=== PATIENT | female | born 1950 | race Caucasian/White ===

== ENCOUNTER → 2020-12-28 10:48 | Outpatient (CLI) | payer MEDICARE, SELFPAY ==
--- NOTE | ~2020-12-28 | MR_ITS ---
EXAMINATION: MR lumbar spine wo con EXAM DATE: 12/28/2020 11:33 INDICATION: Low back pain symptoms for 5 months. TECHNIQUE: Multi-sequential, multiplanar MR images of the lumbar spine were obtained without contrast . Sagittal T1, T2, T2 fat saturation images. Axial T2 weighted images. There is no prior study for comparison. FINDINGS: There is moderate to severe disc disease L4-5, moderate disc disease from T10 through L4 an d mild to moderate at L5-S1. The vertebral bodies are aligned in the AP dimension. The conus medullar is terminates at the T12-L1 level and has normal signal intensity and morphology. There are no suspi cious marrow signal abnormalities. Paraspinal soft tissue is unremarkable. Level by level evaluation: T12-L1: There is a mild diffuse disc bulge. Facet arthropathy: Mild. Neural foraminal stenosis: No stenosis. Central canal stenosis: No stenosis. L1-L2: There is a moderate diffuse disc bulge. Facet arthropathy: Mild to moderate. Neural foraminal stenosis: Mild bilateral. Central canal stenosis: Mild. L2-L3: There is a moderate diffuse disc bulge. Facet arthropathy: Mild to moderate. Neural foraminal stenosis: Mild to moderate left, mild right. Central canal stenosis: Mild. L3-L4: There is a moderate diffuse disc bulge. Facet arthropathy: Moderate . Ligamentum flavum enlargement. Neural foraminal stenosis: Moderate left, mild to moderate right. Central canal stenosis: Mild to moderate. L4-L5: There is a moderate diffuse disc bulge. Facet arthropathy: Moderate . Ligamentum flavum enlargement. Neural foraminal stenosis: Moderate right, mild to moderate left. Central canal stenosis: Moderate. L5-S1: There is a mild to moderate diffuse disc bulge. Facet arthropathy: Severe. Neural foraminal stenosis: Moderate left, mild to moderate right. Central canal stenosis: Moderate. IMPRESSION: 1. Overall moderate lumbar spondylosis. Reviewed, dictated and finalized at location A.
== END ==
PROVIDERS: Visit Provider Nurse Practitioner Family
DX: M47.817 Spondylosis without myelopathy or radiculopathy, lumbosacral region (principal); M48.07 Spinal stenosis, lumbosacral region; M47.815 Spondylosis without myelopathy or radiculopathy, thoracolumbar region
CPT/HCPCS: 72148

== ENCOUNTER 2021-04-05 11:51 | Emergency (ER) | payer MEDICARE, SELFPAY ==
--- NOTE | ~2021-04-05 | XR_ITS ---
EXAMINATION: XR finger 2nd LT min 2V EXAM DATE: 04/05/2021 12:26 INDICATION: Lt 2nd PIP pain. Cant bend 1.5x days. No known recent injury. TECHNIQUE: Left 2nd finger frontal, lateral and oblique projections obtained and reviewed. There i s no prior study for comparison. FINDINGS: There is nearly complete loss of the left 2nd proximal interphalangeal joint space with bon y productive change. There is swelling over the proximal interphalangeal joint and phalanx. Less oste oarthritis at the distal interphalangeal joint. There are no acute fractures identified. No radiopaqu e foreign bodies identified. IMPRESSION: 1. 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 Reviewed, dictated and finalized at location A.
[2021-04-05 12:02] VITALS: BP 127/67; PULSE 89; RESP 20; TEMP 36.3; O2SAT 97
--- NOTE | 2021-04-05 12:18 | ED.UPPEXIN ---
HPI - Extremity Injury (Upper) General Chief Complaint: Extremity Injury, Upper Stated Complaint: Left index finger pain Time Seen by Provider: 04/05/21 12:18 Source: patient Mode of arrival: ambulatory Limitations: no limitations History of Present Illness HPI narrative: Lotus Davila is a 70 yo female with a PMH of A. fib, HTN, depression who comes to [facility] because her left index finger is swollen at the PNP for the last 2 days. Denies trauma Related Data Home Medications Medication Instructions Recorded Confirmed diltiazem HCl PO 04/05/21 diltiazem HCl [DILT-XR] PO 04/05/21 exemestane mg 04/05/21 furosemide 04/05/21 lisinopril 04/05/21 paroxetine HCl mg PO 04/05/21 potassium chloride meq PO 04/05/21 Allergies Allergy/AdvReac Type Severity Reaction Status Date / Time No Known Allergies Allergy Unverified 08/14/18 18:42 Review of Systems Review of Systems: CONSTITUTIONAL: Denies fever, chills, sweats. EYES: Denies visual changes, redness, discharge. ENT: Denies rhinorrhea, congestion, sore throat, otalgia. CARDIOVASCULAR: Denies chest pain, palpitations, edema. RESPIRATORY: Denies dyspnea, wheezing, cough GASTROINTESTINAL: Denies abdominal pain, nausea, vomiting, diarrhea. GENITOURINARY: Denies dysuria, hematuria, abnormal discharge SKIN: Denies rash or itching. NEUROLOGIC: Denies numbness, or focal weakness. PSYCHIATRIC: Denies anxiety or depression. Left index finger pain and swelling at the [employer] [facility] Past Medical History Medical History (Updated 04/05/21 @ 13:17 by Dalia Abdullahi CNP) A-fib Breast cancer Depression Hypertension Surgical History Surgical History (Updated 04/05/21 @ 12:43 by Dalia Abdullahi CNP) H/O lumpectomy Family History Family History (Updated 04/05/21 @ 12:43 by Dalia Abdullahi CNP) Other Heart disease Social History Social History (Updated 04/05/21 @ 12:44 by Dalia Abdullahi CNP) Smoking status: Never smoker Alcohol intake: current Comments At time of signature, I agree with nursing past medical, surgical, social and family history. There is no relevant family history pertinent to the presenting complaint. Exam Narrative: GENERAL: This is a well-nourished, well-developed patient, in mild distress. HEAD: normocephalic, atraumatic. EYES: Sclera clear/white. Vision is grossly intact. EARS: External ears normal, . Hearing grossly intact. NOSE: External nose normal without nasal discharge, THROAT: Mucous membranes moist, NECK: Neck supple, r CARDIOVASCULAR: Regular rate and rhythm without murmurs, gallops, or rubs. RESPIRATORY: Clear to auscultation. Breath sounds equal bilaterally. No wheezes, rales, or rhonchi. GASTROINTESTINAL: Abdomen soft, non-tender, SKIN: warm, intact with no suspicious lesions or rash, good texture and turgor. Occasional small bruises on arms NEURO: awake, alert, and oriented to person, place and time. There were no obvious focal neurologic abnormalities. Steady gait EXTREMITIES: Normal range of motion. Left first index finger is swollen at the [facility] and difficult to extend our flex she has good finger opposition except in the first finger, mildly warm, pink good, cap refill BACK: Nontender without deformity Course Course Emergency Course: Patient comes for evaluation of of her left index finger with swelling at the [facility] x2 days X-ray shows second digit osteoarthritis with swelling with a completely complete loss of this left second proximal interphalangeal joint with bony destructive change Placed in finger splint and sent to hand surgeon Vital Signs Vital signs: Vital Signs Temperature 97.4 F L 04/05/21 12:02 Pulse Rate 89 04/05/21 12:02 Respiratory Rate 20 04/05/21 12:02 Blood Pressure 127/67 04/05/21 12:02 Pulse Oximetry 97 04/05/21 12:02 Temperature 97.4 F L 04/05/21 12:02 Pulse Rate 89 04/05/21 12:02 Respiratory Rate 20 04/05/21 12:02 Blood Pressure 127/67
== END 2021-04-05 13:30 | disposition home or self-care (01) ==
PROVIDERS: Emergency Provider Nurse Practitioner; PCP Internal Medicine
DX: M19.042 Primary osteoarthritis, left hand (principal); M25.442 Effusion, left hand; I48.91 Unspecified atrial fibrillation; I10 Essential (primary) hypertension; Z85.3 Personal history of malignant neoplasm of breast; F32.9 Major depressive disorder, single episode, unspecified
CPT/HCPCS: 29130; 73140; 99213; G0463

== ENCOUNTER 2021-10-18 17:50 | Emergency (ER) | payer MEDICARE, SELFPAY ==
[2021-10-18 18:09] VITALS: BP 150/77; PULSE 82; RESP 14; TEMP 36.1; O2SAT 98
--- NOTE | 2021-10-18 19:19 | ED.LOWEXIN ---
HPI - Extremity Injury (Lower) General Chief Complaint: Extremity Injury, Lower Stated Complaint: Right leg pain Time Seen by Provider: 10/18/21 18:27 Source: patient Mode of arrival: ambulatory Limitations: no limitations History of Present Illness HPI Narrative: 70-year-old female with history of sciatica presents today with left buttock pain that radiates down the back of the left leg. Patient states the pain has been going on since the beginning of September. Patient denies seeing a doctor for this. Patient has been using ibuprofen 400 mg intermittently for pain without relief. Patient has been trying to do stretches for sciatica pain without relief. Patient denies any numbness or tingling, urinary incontinence, fecal incontinence, or saddle paresthesia. Related Data Home Medications Medication Instructions Recorded Confirmed diltiazem HCl PO 04/05/21 diltiazem HCl [DILT-XR] PO 04/05/21 exemestane mg 04/05/21 furosemide 04/05/21 lisinopril 04/05/21 paroxetine HCl mg PO 04/05/21 potassium chloride meq PO 04/05/21 Allergies Allergy/AdvReac Type Severity Reaction Status Date / Time No Known Allergies Allergy Verified 10/18/21 18:37 Review of Systems Review of Systems: CONSTITUTIONAL: Denies fever, chills, or sweats. EYES: Denies visual changes, redness, or discharge. ENT: Denies rhinorrhea, congestion, sore throat, or otalgia. CARDIOVASCULAR: Denies chest pain, palpitations, or edema. RESPIRATORY: Denies cough or dyspnea. GASTROINTESTINAL: Denies abdominal pain, nausea, vomiting, or diarrhea. GENITOURINARY: Denies dysuria or hematuria. SKIN: Denies rash or itching. MUSCULOSKELETAL: Left buttock pain radiating down the back of the left leg stopping at the knee. Denies back pain, joint pain, or myalgia. NEUROLOGIC: Denies headache, numbness, dizziness, or weakness. PSYCHIATRIC: Denies anxiety or depression. [facility] Past Medical History Medical History A-fib Breast cancer Depression Hypertension Surgical History Surgical History H/O lumpectomy Family History Family History Other Heart disease Social History Social History Smoking status: Never smoker Alcohol intake: current Exam Narrative: GENERAL: Well-appearing, well-nourished, and in no acute distress. HEAD: Normocephalic, atraumatic. EYES: PERRLA and EOMI. ENT: Nares clear, no rhinorrhea or epistaxis. Mucous membranes moist. Oropharynx without tonsillar hypertrophy exudate or other lesions. Bilateral TMs pearly hill nonbulging NECK: Supple. No adenopathy or masses. No carotid bruits or JVD CHEST: Clear to auscultation. No respiratory distress. No wheezes rales or rhonchi HEART: Regular rate and rhythm. No murmur heard. Normal peripheral pulses. ABDOMEN: Soft, nontender, nondistended, normal active bowel sounds. EXTREMITIES: Normal range of motion. No edema. Negative straight leg raises bilaterally. Point tenderness to left sacral area. SKIN: Warm, dry, no rash. NEURO: No focal deficits. Alert and oriented x3. PSYCH: Normal mood and affect. Course Vital Signs Vital signs: Vital Signs Temperature 36.1 C L 10/18/21 18:09 Pulse Rate 82 10/18/21 18:09 Respiratory Rate 14 10/18/21 18:09 Blood Pressure 150/77 H 10/18/21 18:09 Pulse Oximetry 98 10/18/21 18:09 Temperature 36.1 C L 10/18/21 18:09 Pulse Rate 77 10/18/21 20:06 Respiratory Rate 18 10/18/21 20:06 Blood Pressure 144/73 H 10/18/21 20:06 Pulse Oximetry 97 10/18/21 20:06 MDM - Extremity Injury (Lower) MDM Narrative Medical decision making narrative: Patient's pain is positional in nature and localized to back without signs of cord compression or cauda equina based on neurological exam, skeletal exam and history. No
[2021-10-18] MEDS: KETOROLAC 30 MG/ML VIAL (*BKC) IM (19:50)
[2021-10-18] MEDS: LIDOCAINE 5% PATCH 1 PATCH TRANSDERM (19:50)
[2021-10-18] MEDS: HYDROcodone/acetaminophen (*CRX) 5-325 MG TABLET 1 TAB PO (19:51)
[2021-10-18] MEDS: PHARMACIST COMMUNICATION ORDER 1 EACH XX (19:52)
[2021-10-18 20:06] VITALS: BP 144/73; PULSE 77; RESP 18; O2SAT 97
== END 2021-10-18 20:07 | disposition home or self-care (01) ==
LOC: ANHED 19:25
PROVIDERS: Emergency Provider Nurse Practitioner Family; PCP Internal Medicine
DX: M54.32 Sciatica, left side (principal); I48.91 Unspecified atrial fibrillation; I10 Essential (primary) hypertension; F32.A Depression, unspecified; Z85.3 Personal history of malignant neoplasm of breast
CPT/HCPCS: 96372; 99283; A9270; J1100; J1885

== ENCOUNTER 2022-01-24 09:37 | Inpatient (IN) | payer MEDICARE, SELFPAY ==
[2022-01-24] VITALS (13 sets, daily range): BP systolic 128–143; BP diastolic 60–70; PULSE 63–95; RESP 16–22; TEMP 36.1–36.7; O2SAT 95–97; BMI 35.1
--- NOTE | 2022-01-24 | ECHO_ITS ---
Patient Info Name: Lotus Davila Age: 71 years : 1950 Gender: Female Ht: 67 in Wt: 224 lbs BSA: 2.23 m2 HR: 67 bpm BP: 143 / 68 mmHg Technical Quality: Fair Exam Date: 01/24/2022 4:16 PM Exam Location: [facility] Pulmonary Exam Room: [facility] Patient Status: Outpatient Admit Date: 01/24/2022 Staff Ordering Physician: Lianet Stearns PA-C Network Applications Specialist: Ailyn Armijo RDCS Attending Provider: Lianet Stearns PA-C Referring Physician: Jinny JACKMAN; Exam Type: CA echo doppler w bubble study Study Info Indications - CVA Complete two-dimensional, color flow and Doppler transthoracic echocardiogram is performed with agitated saline. Contrast/Agitated Saline Contrast/Ag. Saline: Agitated Saline Amount: 20.00 ml Existing IV Access: Yes IV Access Condition: patent with no signs of infiltration Summary 1. Left ventricular chamber dimension is normal. 2. Left ventricular systolic function is normal, estimated at 65-70%. 3. The left ventricular diastolic function is grade II diastolic dysfunction. 4. There is mild aortic valve sclerosis. 5. No pulmonary hypertension, estimated pulmonary arterial systolic pressure is 22 mmHg. Left Ventricle Tissue doppler is not performed. Left ventricular chamber dimension is normal. Left ventricular systolic function is normal, estimated at 65-70%. The left ventricular diastolic function is grade II diastolic dysfunction. Right Ventricle Right ventricular chamber dimension is normal. Right ventricular systolic function is normal. Left Atria Left atrial chamber dimension is normal. Right Atria Right atrial chamber dimension is normal. Atrial Septum Agitated saline injection with and without valsalva maneuver opacified right side cardiac chambers without shunt to left side cardiac chambers. Intact interatrial septum visualized by 2D and agitated saline imaging. Aortic Valve The aortic valve is trileaflet. There is mild aortic valve sclerosis. There is no aortic valve stenosis. There is no aortic valve regurgitation. Pulmonic Valve There is no pulmonic regurgitation. Mitral Valve There is no mitral valve stenosis. There is no mitral valve regurgitation. Tricuspid Valve There is no tricuspid valve regurgitation. No pulmonary hypertension, estimated pulmonary arterial systolic pressure is 22 mmHg. Pericardium/Pleural There is no pericardial effusion. Inferior Vena Cava Normal inferior vena cava with >50% collapse upon inspiration consistent with normal right atrial pressure, 5 mmHg. Aorta The aortic root size at the sinus of Valsalva is normal. Left Ventricular Outflow Tract Name Value Normal LVOT 2D LVOT Diameter 2.0 cm LVOT Doppler LVOT Peak Gradient 5 mmHg LVOT Mean Gradient 2 mmHg LVOT VTI 21 cm LVOT VTI/AV VTI Ratio 1.0 LVOT Stroke Volume 65 ml LVOT CO 13.3 l/min LVOT
--- NOTE | ~2022-01-24 | XR_ITS ---
EXAMINATION: XR chest 1V portable DATE: 01/24/2022 10:35 INDICATION: Generalized weakness TECHNIQUE: frontal view of the chest was obtained. COMPARISON: None FINDINGS: Lungs are clear with no focal airspace opacities, pulmonary edema, pleural effusion or pneumothorax. Heart size is normal. Calcified right hilar lymph nodes consistent with old granulomatous disease. As ymmetric decreased size of the left breast with surgical clip suggesting prior excisional biopsy. IMPRESSION: 1. No acute cardiopulmonary disease. Reviewed, dictated and finalized at location A.
--- NOTE | ~2022-01-24 | MR_ITS ---
EXAMINATION: MR brain/brain stem wo con DATE: 01/25/2022 06:57 INDICATION: Stroke TECHNIQUE: Magnetic resonance imaging (MRI) of the brain and brainstem was performed without intraven ous contrast. Sequences included sagittal and axial T1-weighted SE, axial diffusion-weighted FS SE, a xial T2*-weighted GRE, axial T2-weighted FLAIR, and axial T2-weighted FSE. Postcontrast axial and cor onal T1-weighted SE was obtained. Apparent diffusion coefficient (ADC) maps were created. COMPARISON: CT studies dated 01/24/2022 FINDINGS: Moderate-sized region of restricted diffusion involving the medial aspect of the posterior left tempo ral and left occipital lobes consistent with acute infarct in the vascular distribution of the left p osterior cerebral artery. Single tiny focus of susceptibility artifact in the left frontal lobe white matter which could represent either old blood products or calcification not evident on prior CT. No other intracranial hemorrhage or abnormal intracranial mass lesion. There are scattered areas of nons pecific increased T2-weighted signal intensity in the cerebral white matter, predominantly involving the deep and periventricular white matter. There are no intraparenchymal signal abnormalities seen on the other pulse sequences. The ventricles are symmetric and normal in size. There are no abnormal ex tra-axial fluid collections. Flow voids are seen in the cerebral arteries on the T2-weighted sequence s consistent with their expected patency. Visualized orbits and soft tissues are unremarkable. IMPRESSION: 1. Moderate-sized acute infarct in the left posterior cerebral artery vascular distribution of the me dial left temporal and left occipital lobes. 2. Single tiny focus of susceptibility artifact in the left frontal lobe white matter which could rep resent either blood products related to old microhemorrhage such as in the setting of hypertension or nonspecific dystrophic calcification. 3. Patchy scattered nonspecific white matter T2 hyperintensity likely related to chronic small vessel ischemic disease. Reviewed, dictated and finalized at location A. IMPRESSION: 1. Moderate-sized acute infarct in the left posterior cerebral artery vascular distribution of the medial left temporal and left occipital lobes. 2. Single tiny focus of susceptibility artifact in the left frontal lobe white matter which could represent either blood products related to old microhemorrha ge such as in the setting of hypertension or nonspecific dystrophic calcificati on. 3. Patchy scattered nonspecific white matter T2 hyperintensity likely related t o chronic small vessel ischemic disease.
--- NOTE | ~2022-01-24 | CT_ITS ---
EXAMINATION: CT brain wo con DATE: 01/24/2022 10:28 INDICATION: Headache. Visual changes. TECHNIQUE: Computed tomography (CT) of the head was performed without intravenous contrast. Sagittal and coronal reconstructions were performed. Automated exposure control and iterative reconstruction t echnique were employed. The dose-length product was 605.33 mGy-cm. COMPARISON: None FINDINGS: Moderate-sized region of cytotoxic edema involving both the hill and white matter at the left tempora l and occipital lobes consistent with relatively recent infarct in the left posterior cerebral artery vascular distribution. No acute intracranial hemorrhage or abnormal extra axial fluid collection. Th ere is additional mild scattered white matter hypoattenuation consistent with chronic small vessel is chemic disease. Symmetric prominence of the sulci consistent with mild age-appropriate diffuse cerebr al volume loss. Ventricles are normal and symmetric. No abnormal masses identified. The orbits, paran shravan sinuses and mastoid air cells are normal. Intracranial calcified cerebral atherosclerosis is not ed. Mild hyperostosis frontalis. IMPRESSION: 1. Acute to subacute infarct in the left posterior cerebral artery vascular distribution of the left temporal and parietal lobes. Reviewed, dictated and finalized at location A. IMPRESSION: 1. Acute to subacute infarct in the left posterior cerebral artery vascular dis tribution of the left temporal and parietal lobes.
--- NOTE | ~2022-01-24 | CT_ITS ---
EXAMINATION: CTA BRAIN/CAROTID DATE: 01/24/2022 11:43 INDICATION: Stroke TECHNIQUE: Computed tomographic angiography (CTA) of the head and neck was performed with 100 mL Omni paque-350 intravenous contrast. Multiplanar reconstructions and maximum intensity projection 3D-recon structions of the carotid arteries and of the intracranial arteries were created by the technologist on a separate workstation. Automated exposure control and iterative reconstruction technique were emp loyed.The dose-length product was 1097.37 mGy-cm. COMPARISON: Head CT dated 01/24/2022 FINDINGS: Carotid arteries: There is some atherosclerotic calcification without significant stenosis along the normal caliber tho racic aortic arch as well as at the origins of the great vessels. Additional calcite atherosclerotic plaque but with 0% stenosis of the right carotid bulb relative to normal distal artery lumen diameter (NASCET criteria). There is 30% stenosis in the extracranial right internal carotid artery at the ce phalad margin of the carotid bulb. As on the right there is atherosclerotic plaque with 0% stenosis o f the left carotid bulb relative to normal distal artery lumen diameter but also 30% stenosis in the extracranial left internal carotid artery at the cephalad margin of the carotid bulb. The left verteb ral artery is dominant. There is atherosclerotic plaque scattered along the extracranial portion of t he bilateral vertebral arteries which appears likely at least moderate severity along the left verteb ral artery which is too small in caliber for quantitative assessment. Mild emphysema in the upper karen gs. Cervical soft tissues and visualized superior mediastinum is unremarkable. Severe cervical spondy losis. Intracranial arteries Multifocal atherosclerotic plaque at the bilateral carotid siphons with no hemodynamically significan t stenosis. There is no hemodynamically significant stenosis in the vertebral, basilar and internal c arotid arteries. Right vertebral artery is dominant. There are no aneurysms identified. Both A1 and P1 segments are patent. There is also a patent right posterior communicating artery. Cerebral arteria l arborization appears symmetric. This includes contrast opacified cerebral arteries extending throug h the low-attenuation region of the infarct in the left temporal and occipital lobes. There appears t o be some subtle luxury hyperperfusion along the margins of the region of infarct. IMPRESSION: 1. 0% stenosis at the left and right carotid bulbs relative to normal distal artery lumen diameter (N ASCET criteria) but with more distal 30% stenosis in both the left and right extracranial internal ca rotid arteries along the cephalad margin of the bilateral carotid bulbs. 2. No hemodynamically significant stenosis, aneurysm or thrombosis identified within the intracranial arteries with contrast opacified vessels extending through the region of low attenuation consistent with recent infarct involving portions of the left temporal and occipital lobes. Reviewed, dictated and finalized at location A. IMPRESSION: 1. 0% stenosis at the left and right carotid bulbs relative to normal distal ar sherrie lumen diameter (NASCET criteria) but with more distal 30% stenosis in both the left and right extracranial internal carotid arteries along the cephalad m argin of the bilateral carotid bulbs. 2. No hemodynamically significant stenosis, aneurysm or thrombosis identified w ithin the intracranial arteries with contrast opacified vessels extending throu gh the region of low attenuation consistent with recent infarct involving porti ons of the left temporal and occipital lobes.
--- NOTE | 2022-01-24 10:09 | ECG_ITS ---
Measurements Intervals [place] Rate: 67 P: 33 WV: 162 QRS: 52 QRSD: 89 T: 39 QT: 395 QTc: 419 Interpretive Statements SINUS RHYTHM WITH OCCASIONAL SUPRAVENTRICULAR PREMATURE COMPLEXES ABNORMAL ECG NO PREVIOUS ECG AVAILABLE FOR COMPARISON Electronically Signed On 01-24-2022 12:50:43 CDT by Rohit Rosenberg M.D.
--- NOTE | 2022-01-24 10:09 | ED.AMS ---
HPI - Altered Mental Status General Chief Complaint: Altered Mental Status Stated Complaint: ALTERED MENTATION SINCE FRIDAY Time Seen by Provider: 01/24/22 09:55 History of Present Illness HPI narrative: 71-year-old female presents to the emergency room today for complaints of generalized weakness, fatigue, visual disturbance and headache. She is also reporting a feeling of being off balance. Symptoms began on Friday. She says that she has blurred right peripheral vision almost to the center of her vision. It is affecting both of her eyes. I am standing on her right side and she is able to see me but it is blurry. She has a headache that is bilateral to the top of her head. Her reports that she has been sleeping a lot more than usual. And that she seems like she is off balance when she is up and walking. She has been able to eat and drink but has been less than her normal. She has not had any fever or chills. No runny nose cough or sore throat. She denies any facial numbness or weakness. Denies any extremity weakness or numbness. Denies chest pain. She does report feeling occasionally short of breath. No abdominal pain, nausea, vomiting or diarrhea. Denies any urinary symptoms. Related Data Home Medications Medication Instructions Recorded Confirmed diltiazem HCl 180 mg PO 04/05/21 capsule,extended release 24 hr diltiazem HCl 180 mg PO 04/05/21 capsule,extended release 24 hr, controlled (DILT-XR) exemestane 25 mg tablet mg 04/05/21 furosemide 40 mg tablet 04/05/21 lisinopril 20 mg tablet 04/05/21 paroxetine HCl 20 mg tablet mg PO 04/05/21 potassium chloride 20 mEq meq PO 04/05/21 tablet,extended release(part/cryst) Allergies Allergy/AdvReac Type Severity Reaction Status Date / Time No Known Allergies Allergy Verified 01/24/22 10:10 Review of Systems Review of Systems: CONSTITUTIONAL: Denies fever, chills, or sweats. EYES: as per HPI ENT: Denies rhinorrhea, congestion, sore throat, or otalgia. CARDIOVASCULAR: Denies chest pain, palpitations, or edema. RESPIRATORY: As per HPI GASTROINTESTINAL: Denies abdominal pain, nausea, vomiting, or diarrhea. GENITOURINARY: Denies dysuria or hematuria. SKIN: Denies rash or itching. MUSCULOSKELETAL: Denies back pain, joint pain, or myalgia. NEUROLOGIC: As per HPI PSYCHIATRIC: Denies anxiety or depression. PMFSH Past Medical History Medical History A-fib Breast cancer Depression Hypertension Surgical History Surgical History H/O lumpectomy Family History Family History Other Heart disease Social History Social History Smoking status: Never smoker Alcohol intake: current Exam Narrative: GENERAL: Well-appearing, well-nourished, and in no acute distress. HEAD: Normocephalic, atraumatic. EYES: PERRLA and EOMI. ENT: Nares clear, no rhinorrhea or epistaxis. Mucous membranes moist. Oropharynx without tonsillar hypertrophy exudate or other lesions. Bilateral TMs pearly hill nonbulging NECK: Supple. No adenopathy or masses. No carotid bruits or JVD CHEST: Clear to auscultation. No respiratory distress. No wheezes rales or rhonchi HEART: Regular rate and rhythm. No murmur heard. Normal peripheral pulses. ABDOMEN: Soft, nontender, nondistended, normal active bowel sounds. EXTREMITIES: Normal range of motion. No edema. SKIN: Warm, dry, no rash. NEURO: No focal deficits. Alert and oriented x3. Cranial nerves intact, face symetrical, no tongue deviation, normal speech, extremities 5/5, finger to nose normal, heel armando test normal, Rhomberg negative, no drift. NIH score 1, minus 1 for peripheral vision deficit PSYCH: Normal mood and affect. Course Course Emergency Course: 1055 Discussed carmel
--- NOTE | 2022-01-24 10:10 | PC.NURSE ---
EDP at bedside to assess pt.
--- NOTE | 2022-01-24 10:23 | PC.NURSE ---
Patient off unit to CT.
[2022-01-24 10:26] LABS: Basophils Percent Auto 0.5 % (0.2-1.2); Eosinophils Absolute Auto 0.2 K/mm3 (0-0.3); Eosinophils Percent Auto 1.7 % (0-4.4); Hematocrit 43.6 % (37.0-47.0); Hemoglobin 13.7 g/dL (12.0-15.0); Immature Granulocyte Absolute 0.02 K/mm3 (0.00-0.031); Immature Granulocyte Percent A 0.2 % (0-0.5); Lymphocytes Absolute Auto 1.82 K/mm3 (0.9-3.2); Lymphocytes Percent Auto 21.2 % (18.3-44.2); Mean Corpuscular HGB Conc 31.4 g/dl (32-36); Mean Corpuscular Hemoglobin 27.1 pg (26-34); Mean Corpuscular Volume 86.3 fl (80-100); Mean Platelet Volume 9.7 fl (7.4-10.4); Monocytes Absolute Auto 0.5 K/mm3 (0.1-0.6); Monocytes Percent Auto 5.6 % (2.6-8.5); Neutrophils Absolute Auto 6.1 K/mm3 (1.3-6.7); Neutrophils Percent Auto 70.8 % (45.5-73.1); Platelet Count Result 232 k/mm3 (150-375); Red Blood Count 5.05 M/mm3 (4.2-5.4); Red Cell Distribution Width 16.8 % (11.5-14.5); White Blood Count 8.6 K/mm3 (4.5-10.0)
[2022-01-24 10:38] LABS: Alanine Aminotransferase 16 U/L (6-35); Albumin Level 4.2 g/dL (3.5-5.1); Alkaline Phosphatase 110 U/L (38-126); Anion Gap 3 mmol/L (8-16); Aspartate Amino Transferase 22 U/L (14-36); Bilirubin,Total 0.6 mg/dL (0.2-1.3); Blood Urea Nitrogen 21 mg/dL (7-17); Calcium 9.4 mg/dL (8.4-10.2); Carbon Dioxide 30 mmol/L (22-30); Chloride 104 mmol/L (98-107); Estimated CRCL calculation 48 ml/min; Estimated Glomerular Filt Rate 44; Glucose 101 mg/dL (65-110); Potassium 4.4 mmol/L (3.4-5.0); Sodium 137 mmol/L (137-145)
[2022-01-24 10:39] LABS: INR 1.1; Prothrombin Time 13.6 Seconds (11.1-14.7)
[2022-01-24 10:40] LABS: Partial Thromboplastin Time 27.6 SECONDS (22.3-36.8)
[2022-01-24 10:50] LABS: Troponin I < 0.012 ng/mL (0.000-0.034)
[2022-01-24] MEDS: ONDANSETRON INJ 4 MG/2 ML VIAL IV PUSH (11:03)
[2022-01-24] MEDS: SODIUM CHLORIDE 0.9% IV 1,000 ML 999 ML IV CONT (11:05)
[2022-01-24 11:06] LABS: SARS-CoV-2 RNA PCR Negative
[2022-01-24] MEDS: ASPIRIN 81 MG CHEWABLE TABLET 324 MG PO (11:32)
[2022-01-24] MEDS: CLOPIDOGREL BISULFATE 300 MG TABLET PO (11:33)
--- NOTE | 2022-01-24 13:44 | PM.IMHP ---
H&P: HPI History of Present Illness Date/Time: 01/24/22 13:44 Chief Complaint: confusion Narrative: Pt is a 71 yo female w/ hx of paroxysmal afib s/p ablation, breast cancer s/p radiation and lumpectomy x 2, HTN, and depression, who presented to the ED for confusion. Pt states that 2 nights ago she woke up in the middle of the night feeling disoriented and confused. She went back to bed and slept most of the day yesterday. Pt states she didn't feel right. Symptoms continued today and when her son came to check on her, he felt she was disoriented because she asked what his back brace was even though he'd been wearing it for the past several weeks. He tried helping her put her shoes on but she was having coordination issues. She states she felt off balance with generalized weakness, but did not have any focal motor weakness or paraesthesias. She also notes that she had a frontal headache and loss of her right side peripheral vision, however at the time of my exam she states these symptoms have significantly improved. She overall feels much better. She is hungry and states she hardly ate anything the past 2 days because she has mainly been sleeping. No recent cough/cold symptoms, fevers, chills, bodyaches, N/V/D/abd pain, cp/sob. ER preliminary workup significant for CT head showing acute to subacture infarct in the left posterior cerebral artery vascular distribution. She was given loading dose of aspirin and plavix in ED and neurology was consulted. Pt is being admitted as observation status in this setting. Review of Systems Review of Systems: General: Denies fevers Eyes: + vision changes ENT: Denies nasal congestion or sore throat Respiratory: Denies cough or shortness of breath Cardiovascular: Denies chest pain or lower extremity edema Gastrointestinal: Denies abdominal pain, vomiting, or diarrhea Genitourinary: Denies dysuria Musculoskeletal: Denies back pain Neurological: + headache, denies motor weakness or paraesthesias Integumentary: Denies rash PMFSH Past Medical History Medical History (Updated 01/24/22 @ 14:28 by Lianet Stearns PA-C) A-fib Breast cancer Depression Hypertension Surgical History Surgical History (Updated 01/24/22 @ 14:28 by Lianet Stearns PA-C) H/O lumpectomy History of cardiac radiofrequency ablation History of cataract surgery History of cholecystectomy Social History Social History (Updated 01/24/22 @ 14:30 by Lianet Stearns PA-C) Smoking status: Current some day smoker Tobacco type: cigarettes Additional smoking assessment comments: used to smoke heavily, quit 10 years ago but still has 1-2 cigarettes/month Alcohol intake: current Substance use: never Living arrangements: with family Meds Home Medications and Allergies Home Medications Medication Instructions Recorded Confirmed Type diltiazem HCl 180 mg PO 04/05/21 History capsule,extended release 24 hr exemestane 25 mg tablet mg 04/05/21 History furosemide 40 mg tablet 04/05/21 History lisinopril 20 mg tablet 04/05/21 History paroxetine HCl 20 mg tablet mg PO 04/05/21 History potassium chloride 20 mEq meq PO 04/05/21 History tablet,extended release(part/cryst) Allergies Allergy/AdvReac Type Severity Reaction Status Date / Time No Known Allergies Allergy Verified 01/24/22 14:20 Vital Signs Vital Signs - 24 hr 01/24/22 09:59 01/24/22 10:12 01/24/22 10:15 Temperature 96.9 F L Pulse Rate 95 66 73 Respiratory Rate 16 20 16 Blood Pressure 128/70 Pulse Oximetry 95 Oxygen Delivery Room Air 01/24/22 10:30 01/24/22 10:45 01/24/22 11:00 Temperature Pulse Rate 69 74 69 Respiratory Rate 22 H 17 19 Blood Pressure Pulse Oximetry Oxygen Delivery 01/24/22 11:47 01/24/22 12:00 01/24/22 12:01 Temperature Pulse Rate 65 63 64 Respiratory Rate 17 16 16 Blood Pressure 143/68 H Pulse Oximetry Oxygen Delivery
[2022-01-24 16:23] LABS: Appearance Urine Clear (Clear); Bilirubin Urine Negative (Negative); Blood Urine Negative (Negative); Color Urine Yellow (Yellow); Glucose Urine UA Negative (Negative); Ketones Urine Negative (Negative); Leukocyte Esterase Ur Negative LEU/UL (Negative); Nitrate Urine Negative (Negative); Protein Urine Negative (Negative)
[2022-01-24 16:30] LABS: Add Urine Microscopic? NO
--- NOTE | 2022-01-24 18:39 | PHAR ---
HOME MEDICATION VERIFIED BY PHARMACY: EXEMESTANE 25 MG TABLETS TAKE 1 TABLET BY MOUTH DAILY
[2022-01-25] VITALS (8 sets, daily range): BP systolic 107–124; BP diastolic 60–64; PULSE 67–73; RESP 18; TEMP 36.1–37; O2SAT 94–96
[2022-01-25] MEDS: ACETAMINOPHEN 500 MG TABLET 1000 MG PO (00:33)
[2022-01-25 06:09] LABS: Basophils Percent Auto 0.5 % (0.2-1.2); Eosinophils Absolute Auto 0.2 K/mm3 (0-0.3); Hemoglobin 12.2 g/dL (12.0-15.0); Immature Granulocyte Absolute 0.01 K/mm3 (0.00-0.031); Immature Granulocyte Percent A 0.1 % (0-0.5); Lymphocytes Absolute Auto 2.02 K/mm3 (0.9-3.2); Lymphocytes Percent Auto 25.4 % (18.3-44.2); Mean Corpuscular HGB Conc 31.3 g/dl (32-36); Mean Corpuscular Hemoglobin 27.1 pg (26-34); Mean Corpuscular Volume 86.5 fl (80-100); Mean Platelet Volume 10.1 fl (7.4-10.4); Monocytes Absolute Auto 0.5 K/mm3 (0.1-0.6); Monocytes Percent Auto 5.8 % (2.6-8.5); Neutrophils Absolute Auto 5.3 K/mm3 (1.3-6.7); Neutrophils Percent Auto 66.2 % (45.5-73.1); Platelet Count Result 195 k/mm3 (150-375); Red Blood Count 4.51 M/mm3 (4.2-5.4); Red Cell Distribution Width 16.5 % (11.5-14.5)
[2022-01-25 06:19] LABS: Alanine Aminotransferase 14 U/L (6-35); Albumin Level 3.7 g/dL (3.5-5.1); Alkaline Phosphatase 96 U/L (38-126); Anion Gap 4 mmol/L (8-16); Aspartate Amino Transferase 20 U/L (14-36); Bilirubin,Total 0.4 mg/dL (0.2-1.3); Blood Urea Nitrogen 20 mg/dL (7-17); Carbon Dioxide 27 mmol/L (22-30); Chloride 104 mmol/L (98-107); Estimated CRCL calculation 48 ml/min; Estimated Glomerular Filt Rate 44; Glucose 97 mg/dL (65-110); Potassium 4.4 mmol/L (3.4-5.0); Sodium 135 mmol/L (137-145)
--- NOTE | 2022-01-25 06:38 | PC.NURSE ---
Pt off unit to MRI at 0635 via wheelchair
[2022-01-25] MEDS: CLOPIDOGREL BISULFATE 75 MG TABLET PO (08:12)
[2022-01-25] MEDS: dilTIAZem HCL CD 180 MG CAP.ER.24H PO (08:12)
[2022-01-25] MEDS: POTASSIUM CHLORIDE 20 MEQ TABLET.ER PO (08:13)
[2022-01-25] MEDS: FUROSEMIDE 40 MG TABLET PO (08:13)
[2022-01-25] MEDS: ASPIRIN 81 MG ENTERIC TABLET PO (08:13)
[2022-01-25] MEDS: lisinopriL 20 MG TABLET PO (08:13)
[2022-01-25] MEDS: PARoxetine 20 MG TABLET PO (08:13)
--- NOTE | 2022-01-25 08:13 | PM.IMPN ---
Progress Note: A&P Assessment and Plan (1) CVA (cerebral vascular accident): Code(s): I63.9 - Cerebral infarction, unspecified Status: Acute Assessment and Plan: -CT head shows acute to subacute infarct in the left posterior cerebral artery vascular distribution of the left temporal and parietal lobes -CTA head/neck shows 0% stenosis at the left and right carotid bulbs relative to normal distal artery lumen diameter (NASCET criteria) but with more distal 30% stenosis in both the left and right extracranial internal carotid arteries along the cephalad margin of the bilateral carotid bulbs. No hemodynamically significant stenosis, aneurysm or thrombosis identified within the intracranial arteries with contrast opacified vessels extending through the region of low attenuation consistent with recent infarct involving portions of the left temporal and occipital lobes. -MRI brain pending -started asa and plavix. Continue pravastatin. Received loading dose of asa and plavix in ED -echo pending -neuro consulted (2) A-fib: Code(s): I48.91 - Unspecified atrial fibrillation Status: Acute Assessment and Plan: -hx of paroxysmal afib s/p ablation 3-4 years ago, was taken off of blood thinners after that -states over the past year she has had intermittent palpitations similar to her symptoms prior to her ablation -EKG shows sinus rhythm with occasional supraventricular premature complexes -echo pending -pt will likely need to f/u w/ her youth corrections officer at [place], may need 30 day event monitor to see if she is in fact going back into a fib -monitor on telemetry (3) Hypertension: Code(s): I10 - Essential (primary) hypertension Status: Acute Assessment and Plan: -continue lisinopril -stable (4) Depression: Code(s): F32.9 - Major depressive disorder, single episode, unspecified Status: Acute Assessment and Plan: -continue paroxetine -no acute issues Subjective Date/time seen: 01/25/22 08:13 Interval history: Pt is a 71 yo female w/ hx of paroxysmal afib s/p ablation, breast cancer s/p radiation and lumpectomy x 2, HTN, and depression, admitted for acute CVA. Pt is feeling better today. Has a mild headache but states her vision in her R eye is almost back to normal. No other complaints. No focal weakness. No cp/sob/palpitations. Review of Systems Review of Systems: All systems reviewed & are unremarkable except as noted in HPI and below Exam Narrative: General: No acute distress, non toxic appearing, obese Eyes: PERRL, no scleral icterus, no nystagmus HEENT: NCAT, external ears normal, MMM Respiratory: No respiratory distress, Lungs CTA bilaterally, no wheezing Cardiovascular: RRR, no murmur Abdominal: Soft, nontender, non distended, no rebound or guarding Musculoskeletal: Moves all 4 extremities, no edema Neurological: A/Ox3, speech clear, no facial asymmetry, cranial nerves II-XII intact, 5/5 strength BUE and BLE Skin: Warm, dry, no rashes Objective Data Vital Signs Vital Signs: Vital Signs - 24 hr 01/24/22 09:59 01/24/22 10:12 01/24/22 10:15 Temperature 96.9 F L Pulse Rate 95 66 73 Respiratory Rate 16 20 16 Blood Pressure 128/70 Pulse Oximetry 95 Oxygen Delivery Room Air 01/24/22 10:30 01/24/22 10:45 01/24/22 11:00 Temperature Pulse Rate 69 74 69 Respiratory Rate 22 H 17 19 Blood Pressure Pulse Oximetry Oxygen Delivery 01/24/22 11:47 01/24/22 12:00 01/24/22 12:01 Temperature Pulse Rate 65 63 64 Respiratory Rate 17 16 16 Blood Pressure 143/68 H Pulse Oximetry Oxygen Delivery 01/24/22 15:40 01/24/22 16:00 01/24/22 20:00 Temperature 97.4 F L Pulse Rate 75 76 70 Respiratory Rate 16 Blood Pressure 133/60 Pulse Oximetry 97 Oxygen Delivery 01/24/22 20:00 01/24/22 22:00 01/25/22 00:00 Temperature 98.1 F Pulse Rate 70 70 Respiratory Rat
[2022-01-25] MEDS: PRAVASTATIN SODIUM 20 MG TABLET 80 MG PO (09:01)
[2022-01-25] MEDS: ONDANSETRON HCL ODT 4 MG TABLET PO (11:19)
[2022-01-25] MEDS: ACETAMINOPHEN 325 MG TABLET 650 MG PO ×2 (11:19→20:17)
--- NOTE | 2022-01-25 12:15 | WPDNEURCNPN ---
Consult date: 01/25/22 Time Seen: 12:00 Reason for consult: stroke HPI: Lotus Davila is a 71 year old female [facility] Past Medical History Medical History (Updated 01/24/22 @ 14:28 by Lianet Stearns PA-C) A-fib Breast cancer Depression Hypertension Surgical History Surgical History (Updated 01/24/22 @ 14:28 by Lianet Stearns PA-C) H/O lumpectomy History of cardiac radiofrequency ablation History of cataract surgery History of cholecystectomy Social History Social History (Updated 01/24/22 @ 14:30 by Lianet Stearns PA-C) Smoking status: Current some day smoker Tobacco type: cigarettes Additional smoking assessment comments: used to smoke heavily, quit 10 years ago but still has 1-2 cigarettes/month Alcohol intake: current Substance use: never Living arrangements: with family Spiritual care concerns: No Meds Home Medications and Allergies Home Medications Medication Instructions Recorded Confirmed Type diltiazem HCl 180 mg 180 mg PO DAILY 04/05/21 01/24/22 History capsule,extended release 24 hr exemestane 25 mg tablet (Aromasin) 25 mg PO DAILY 04/05/21 01/24/22 History furosemide 40 mg tablet (Lasix) 40 mg PO DAILY 04/05/21 01/24/22 History lisinopril 20 mg tablet 20 mg PO DAILY 04/05/21 01/24/22 History paroxetine HCl 20 mg tablet 20 mg PO DAILY 04/05/21 01/24/22 History potassium chloride 20 mEq 20 meq PO DAILY 04/05/21 01/24/22 History tablet,extended release(part/cryst) aspirin 81 mg BYMOUTH DAILY 01/24/22 01/24/22 History pravastatin 80 mg tablet 80 tablet PO DAILY 01/24/22 01/24/22 History Allergies Allergy/AdvReac Type Severity Reaction Status Date / Time No Known Allergies Allergy Verified 01/24/22 14:20 Vital Signs Vital Signs - 24 hr 01/24/22 15:40 01/24/22 16:00 01/24/22 20:00 Temperature 36.3 C L Pulse Rate 75 76 70 Respiratory Rate 16 Blood Pressure 133/60 Pulse Oximetry 97 Oxygen Delivery 01/24/22 20:00 01/24/22 22:00 01/25/22 00:00 Temperature 36.7 C Pulse Rate 70 70 Respiratory Rate 20 Blood Pressure 139/70 Pulse Oximetry 97 Oxygen Delivery Room Air 01/25/22 04:00 01/25/22 05:22 01/25/22 09:42 Temperature 36.1 C L Pulse Rate 71 67 Respiratory Rate 18 Blood Pressure 124/64 Pulse Oximetry 95 Oxygen Delivery Room Air 01/25/22 08:45 Temperature Pulse Rate Respiratory Rate Blood Pressure Pulse Oximetry Oxygen Delivery Room Air Results Labs CBC & Chem 7: 01/25/22 05:31 01/25/22 05:31 Labs: Short CBC 01/25/22 Range/Units 05:31 WBC 8.0 (4.5-10.0) K/mm3 Hgb 12.2 (12.0-15.0) g/dL Hct 39.0 (37.0-47.0) % Plt Count 195 (150-375) k/mm3 BMP 01/25/22 05:31 Sodium 135 L Potassium 4.4 Chloride 104 Carbon Dioxide 27 BUN 20 H Creatinine 1.20 H Glucose 97 Calcium 9.0 Liver Function 01/25/22 Range/Units 05:31 Total Bilirubin 0.4 (0.2-1.3) mg/dL AST 20 (14-36) U/L ALT 14 (6-35) U/L Alkaline Phosphatase 96 (38-126) U/L Albumin 3.7 (3.5-5.1) g/dL Urine 01/24/22 Range/Units 16:09 Urine Color Yellow (Yellow) Urine Appearance Clear (Clear) Urine pH 6.0 (5.0-9.0) Ur Specific [place] 1.010 (1.001-1.035) Urine Protein Negative (Negative) mg/dL Urine Glucose (UA) Negative (Negative) mg/dL Quality VTE Prophylaxis VTE prophylaxis: mechanical ordered and pharmacologic ordered
--- NOTE | 2022-01-25 12:54 | WPDNEURCNPN ---
Assessment and Plan Assessment and plan (1) CVA (cerebral vascular accident): Code(s): I63.9 - Cerebral infarction, unspecified Status: Acute (2) A-fib: Code(s): I48.91 - Unspecified atrial fibrillation Status: Acute (3) Hypertension: Code(s): I10 - Essential (primary) hypertension Status: Acute (4) Depression: Code(s): F32.9 - Major depressive disorder, single episode, unspecified Status: Acute Plan considering the pre-existent history of the atrial fibrillation patient will be restarted on the anticoagulation therapy instead of aspirin and Plavix. All the pros and cons will be discussed with the patient's family who happened to be in the room and she will be followed in the office as an outpatient Consult date: 01/25/22 Time Seen: 10:00 Reason for consult: change in the mental status HPI: Lotus Davila is a 71 year old female admitted to the hospital through the emergency room where she was brought with the complaints of altered mental status since Friday in the emergency room she complained of generalized weakness along with fatigue visual disturbances and headache and also complained of being off balance symptomatology started on Friday initially she had blurred vision on the right side up to the midline affecting her both eyes along with that she complain of headache the top of her head and also she was noted to be sleeping excessively she was able to eat and drink he has no history of any generalized symptomatology she did not complain of facial weakness or numbness or weakness or numbness of the upper or lower extremities. Patient had been taking diltiazem 180 mg daily in addition to fluorescent might 40 mg daily, lisinopril 20 mg daily, paroxetine 20 mg daily, and also potassium supplement, she is not known to be allergic to any medication , she does have ongoing history of 1. Atrial fibrillation 2. Breast cancer 3. Hypertension 4. Depression past she has also undergone lumpectomy. Initial examination documented the visual field cut initial EKG did not document atrial fibrillation, routine labs and vital signs were normal, the CT scan of the head revealed acute to subacute infarct in left posterior cerebral artery vascular distribution involving the left temporal and parietal lobes but the CTA documented 0% stenosis of the left and right carotid bulbs but with more distal 30% stenosis in both the left and right extracranial internal carotid arteries and MRI of the brain documented moderate size acute infarct in left posterior cerebral artery vascular distribution of the medial left temporal lobe and left occipital lobe along with single tiny focus of susceptibility artifact in left frontal lobe white matter and patchy scattered nonspecific white matter T2 hyperintensities related to chronic small vessel ischemic disease Review of Systems Review of Systems: All systems reviewed & are unremarkable except as noted in HPI and below [facility] Past Medical History Medical History (Updated 01/24/22 @ 14:28 by Lianet Stearns PA-C) A-fib Breast cancer Depression Hypertension Surgical History Surgical History (Updated 01/24/22 @ 14:28 by Lianet Stearns PA-C) H/O lumpectomy History of cardiac radiofrequency ablation History of cataract surgery History of cholecystectomy Social History Social History (Updated 01/24/22 @ 14:30 by Lianet Stearns PA-C) Smoking status: Current some day smoker Tobacco type: cigarettes Additional smoking assessment comments: used to smoke heavily, quit 10 years ago but still has 1-2 cigarettes/month Alcohol intake: current Substance use: never Living arrangements: with family Spiritual care concerns: No Meds Home Medications and Allergies Home Medications Medication Instructions Recorded Confirmed Type diltiazem HCl 180 mg 180 mg PO DAILY 04/05/21 01/24/22 History capsule,extended release 24 hr exemestane 2
--- NOTE | 2022-01-25 13:05 | WPDNEURCNPN ---
Consult date: 01/25/22 HPI: Lotus Davila is a 71 year old female [facility] Past Medical History Medical History (Updated 01/24/22 @ 14:28 by Lianet Stearns PA-C) A-fib Breast cancer Depression Hypertension Surgical History Surgical History (Updated 01/24/22 @ 14:28 by Lianet Stearns PA-C) H/O lumpectomy History of cardiac radiofrequency ablation History of cataract surgery History of cholecystectomy Social History Social History (Updated 01/24/22 @ 14:30 by Lianet Stearns PA-C) Smoking status: Current some day smoker Tobacco type: cigarettes Additional smoking assessment comments: used to smoke heavily, quit 10 years ago but still has 1-2 cigarettes/month Alcohol intake: current Substance use: never Living arrangements: with family Spiritual care concerns: No Meds Home Medications and Allergies Home Medications Medication Instructions Recorded Confirmed Type diltiazem HCl 180 mg 180 mg PO DAILY 04/05/21 01/24/22 History capsule,extended release 24 hr exemestane 25 mg tablet (Aromasin) 25 mg PO DAILY 04/05/21 01/24/22 History furosemide 40 mg tablet (Lasix) 40 mg PO DAILY 04/05/21 01/24/22 History lisinopril 20 mg tablet 20 mg PO DAILY 04/05/21 01/24/22 History paroxetine HCl 20 mg tablet 20 mg PO DAILY 04/05/21 01/24/22 History potassium chloride 20 mEq 20 meq PO DAILY 04/05/21 01/24/22 History tablet,extended release(part/cryst) aspirin 81 mg BYMOUTH DAILY 01/24/22 01/24/22 History pravastatin 80 mg tablet 80 tablet PO DAILY 01/24/22 01/24/22 History Allergies Allergy/AdvReac Type Severity Reaction Status Date / Time No Known Allergies Allergy Verified 01/24/22 14:20 Vital Signs Vital Signs - 24 hr 01/24/22 15:40 01/24/22 16:00 01/24/22 20:00 Temperature 36.3 C L Pulse Rate 75 76 70 Respiratory Rate 16 Blood Pressure 133/60 Pulse Oximetry 97 Oxygen Delivery 01/24/22 20:00 01/24/22 22:00 01/25/22 00:00 Temperature 36.7 C Pulse Rate 70 70 Respiratory Rate 20 Blood Pressure 139/70 Pulse Oximetry 97 Oxygen Delivery Room Air 01/25/22 04:00 01/25/22 05:22 01/25/22 09:42 Temperature 36.1 C L Pulse Rate 71 67 Respiratory Rate 18 Blood Pressure 124/64 Pulse Oximetry 95 Oxygen Delivery Room Air 01/25/22 08:45 01/25/22 12:00 Temperature Pulse Rate 72 Respiratory Rate Blood Pressure Pulse Oximetry Oxygen Delivery Room Air Results Labs CBC & Chem 7: 01/25/22 05:31 01/25/22 05:31 Labs: Short CBC 01/25/22 Range/Units 05:31 WBC 8.0 (4.5-10.0) K/mm3 Hgb 12.2 (12.0-15.0) g/dL Hct 39.0 (37.0-47.0) % Plt Count 195 (150-375) k/mm3 BMP 01/25/22 05:31 Sodium 135 L Potassium 4.4 Chloride 104 Carbon Dioxide 27 BUN 20 H Creatinine 1.20 H Glucose 97 Calcium 9.0 Liver Function 01/25/22 Range/Units 05:31 Total Bilirubin 0.4 (0.2-1.3) mg/dL AST 20 (14-36) U/L ALT 14 (6-35) U/L Alkaline Phosphatase 96 (38-126) U/L Albumin 3.7 (3.5-5.1) g/dL Urine 01/24/22 Range/Units 16:09 Urine Color Yellow (Yellow) Urine Appearance Clear (Clear) Urine pH 6.0 (5.0-9.0) Ur Specific [place] 1.010 (1.001-1.035) Urine Protein Negative (Negative) mg/dL Urine Glucose (UA) Negative (Negative) mg/dL Quality VTE Prophylaxis VTE prophylaxis: mechanical ordered and pharmacologic ordered
--- NOTE | 2022-01-25 13:46 | PCOTNOTE ---
Amended evaluation. Pt. visual deficits have improved. D/C from services.
[2022-01-25] MEDS: RIVAROXABAN 15 MG TABLET PO (17:07)
[2022-01-26 04:00] VITALS: PULSE 55
[2022-01-26 05:52] VITALS: BP 120/64; PULSE 60; RESP 16; TEMP 36.3; O2SAT 94
[2022-01-26 08:00] VITALS: PULSE 62
[2022-01-26] MEDS: PRAVASTATIN SODIUM 20 MG TABLET 80 MG PO (08:06)
[2022-01-26] MEDS: lisinopriL 20 MG TABLET PO (08:06)
[2022-01-26] MEDS: PARoxetine 20 MG TABLET PO (08:06)
[2022-01-26] MEDS: POTASSIUM CHLORIDE 20 MEQ TABLET.ER PO (08:06)
[2022-01-26] MEDS: dilTIAZem HCL CD 180 MG CAP.ER.24H PO (08:06)
[2022-01-26] MEDS: FUROSEMIDE 40 MG TABLET PO (08:07)
[2022-01-26 08:31] LABS: Anion Gap 5 mmol/L (8-16); Blood Urea Nitrogen 18 mg/dL (7-17); Calcium 9.2 mg/dL (8.4-10.2); Carbon Dioxide 30 mmol/L (22-30); Chloride 103 mmol/L (98-107); Estimated CRCL calculation 48 ml/min; Estimated Glomerular Filt Rate 44; Glucose 103 mg/dL (65-110); Potassium 4.4 mmol/L (3.4-5.0); Sodium 138 mmol/L (137-145)
--- NOTE | 2022-01-26 11:37 | PM.DS ---
DS: Admitting Diagnosis Discharge Date 01/26/22 Admitting Diagnosis Confusion DS: Discharge Diagnosis Discharge Diagnosis (1) CVA (cerebral vascular accident): Code(s): I63.9 - Cerebral infarction, unspecified Status: Acute (2) A-fib: Code(s): I48.91 - Unspecified atrial fibrillation Status: Acute (3) Hypertension: Code(s): I10 - Essential (primary) hypertension Status: Acute (4) Depression: Code(s): F32.9 - Major depressive disorder, single episode, unspecified Status: Acute (5) Breast cancer: Code(s): C50.919 - Malignant neoplasm of unspecified site of unspecified female breast Status: Acute DS: Summary Hospital Course Reason for hospitalization: 71yo female who presents with confusion. Please see H&P for details Hospital Course: Patient presents with generalized weakness, fatigue, visual disturbance and headache. She was having confusion as well. EKG showed sinus rhythm with occasional PAC. Echocardiogram showed EF of 65-70% with grade 2 diastolic dysfunction and no significant valvular disease. The intra-atrial septum was intact. Brain CT showed acute to subacute infarct of the left posterior cerebral artery distribution involving the temporal and parietal lobes. Chest x-ray was clear. CTA of the head and neck showed 0% stenosis of the left and right carotid bulbs but with more distal 30% stenosis of the bilateral extracranial ICA. No hemodynamically significant stenosis, aneurysm or thrombus identified. Brain MRI showed moderate size acute infarct in left posterior cerebral artery distribution of the medial left temporal and left occipital lobes. There is also a single tiny foci a in the left frontal lobe which could represent old microhemorrhage. Neurology was consulted. She is on Aromasin and this was held. Creatinine was mildly elevated at 1.2 and remained stable and was suspected that she has underlying CKD. No recent lab work here to compare. Urinalysis was clear. COVID test was negative. Patient worked with therapy. She was on telemetry but this did not show any episodes of AFib. There was a concern however for paroxysmal AFib that resulted in her stroke. Neurology started her on Xarelto. Aspirin was stopped. Patient feels well. She overall did well was a to be discharged home on 01/26/2022. Status at Discharge Cognitive/behavioral status at discharge: Stable Time Spent with Patient Time attestation: Total time spent providing and/or coordinating discharge services: 35 minutes Time spent: Greater than 30 minutes Exam Narrative: AF 97.3 120/64 62 16 94% ra Gen - NARD Chest - CTA bilaterally, nml RR CV - RRR S1/S2; Tele showing PVCs Abd - Soft, NT/ND, Positive BS Ext - No pedal edema Neuro - Alert and oriented. Nonfocal exam. Mildly forgetful Psych - Nml mood and affect Skin - Warm and dry DS: Data Data Completed and Pending Labs on day of discharge: Labs from last 24 hours 01/26/22 08:04 Sodium 138 Potassium 4.4 Chloride 103 Carbon Dioxide 30 Anion Gap 5 L BUN 18 H Creatinine 1.20 H Estim Creat Clear Calc 48 Estimated GFR 44 L Glucose 103 Calcium 9.2 Discharge Plan Discharge Attending physician on discharge: Boston Mendez Consulting providers: Nima Aguirre Discharging Clinician: Boston Mendez Anticipated Discharge Date/Time: 01/26/22 11:51 Patient Disposition: Home, Self-Care Activity: as tolerated Diet: heart healthy Discharge Instructions: Please avoid large gathering, wear face coverings in public and practice social distance. Take precautions to avoid falls. Rise slowly from a lying or sitting position. Pause before standing or walking. Contact your doctor or call 911 and come to the Emergency Room if you have any type of trauma, lightheadedness with standing or other worrisome symptoms. Avoid NSAIDs (ibuprofen, naproxen, Aleve). Enedina
== END 2022-01-26 12:40 | disposition home or self-care (01) | DRG 66 ==
LOC: ANHED 10:10 → ANH3MEDSUR 12:12
PROVIDERS: Physician Assistant; Admitting Provider Family Medicine; Emergency Provider Nurse Practitioner Family; PCP Internal Medicine; Visit Provider Internal Medicine
DX: I63.9 Cerebral infarction, unspecified (principal); H53.8 Other visual disturbances; R53.1 Weakness; R53.83 Other fatigue; I48.91 Unspecified atrial fibrillation; C50.919 Malignant neoplasm of unspecified site of unspecified female breast; I12.9 Hypertensive chronic kidney disease with stage 1 through stage 4 chronic kidney disease, or unspecified chronic kidney disease; N18.9 Chronic kidney disease, unspecified; F32.9 Major depressive disorder, single episode, unspecified; F17.210 Nicotine dependence, cigarettes, uncomplicated; Z20.822 Contact with and (suspected) exposure to COVID-19; Z79.811 Long term (current) use of aromatase inhibitors; Z79.82 Long term (current) use of aspirin; Z79.899 Other long term (current) drug therapy; Z92.3 Personal history of irradiation
CPT/HCPCS: 36415; 70450; 70496; 70498; 70551; 71045; 80048; 80053; 81003; 84484; 85025; 85610; 85730; 93005; 93306; 96361; 96374; 96375; 97161; 97165; 99285; A9270; C9803; G0378; J2405; J7030; Q9967; U0003; U0005

== ENCOUNTER 2023-01-10 01:49 | Day surgery (SDC) | payer MEDICARE, SELFPAY ==
[2023-01-03 13:04] VITALS: BMI 37.6
--- NOTE | 2023-01-09 17:50 | PM.HPGS ---
History of Present Illness History of Present Illness Consent: Risks, benefits, and alternatives have been discussed and questions answered. Patient agrees to proceed with procedure. Chief complaint: anemia Narrative: Lotus Davila is a 72 year old female He is referred for EGD and colonoscopy because of anemia. She has microcytic anemia with hemoglobin of 10.5. MCV is 77. she was feeling extremely tired and fatigued for a week or 2. She since starting iron she is feeling better. Her last colonoscopy was 10 years ago. She takes Naprosyn also Xarelto. Review of Systems Review of Systems: All systems reviewed & are unremarkable except as noted in HPI and below PMFSH Past Medical History Medical History A-fib Breast cancer Depression Hypertension Surgical History Surgical History H/O lumpectomy History of cardiac radiofrequency ablation History of cataract surgery History of cholecystectomy Social History Social History Smoking packs per day: 0.75 Smoking cigarettes per day: 15.0 Years smoked: 45 Smoking pack-years: 33.75 Smoking status: Former smoker Tobacco type: cigarettes Additional smoking assessment comments: used to smoke heavily, quit 10 years ago but still has 1-2 cigarettes/month Alcohol intake: current Substance use: never Substance use type: does not use Living arrangements: with family Spiritual care concerns: No Meds Home Medications and Allergies Home Medications Medication Instructions Recorded Confirmed Type diltiazem HCl 180 mg 180 mg PO DAILY 04/05/21 01/03/23 History capsule,extended release 24 hr exemestane 25 mg tablet (Aromasin) 25 mg PO DAILY 04/05/21 01/03/23 History furosemide 40 mg tablet (Lasix) 40 mg PO DAILY 04/05/21 01/03/23 History lisinopril 20 mg tablet 20 mg PO DAILY 04/05/21 01/03/23 History paroxetine HCl 20 mg tablet 20 mg PO DAILY 04/05/21 01/03/23 History potassium chloride 20 mEq 20 meq PO DAILY 04/05/21 01/03/23 History tablet,extended release(part/cryst) pravastatin 80 mg tablet 80 tablet PO DAILY 01/24/22 01/03/23 History rivaroxaban 15 mg tablet (Xarelto) 15 mg PO DAILY@1700 30 days #30 01/25/22 01/03/23 Rx tabs Stool Softener 1 tab-cap PO HS 01/03/23 01/03/23 History calcium carbonate 600 mg-vitamin 1 tablet PO DAILY 01/03/23 01/03/23 History D3 10 mcg (400 unit) tablet (Calcium 600 + D(3)) ezetimibe 10 mg tablet 10 mg PO DAILY 01/03/23 01/03/23 History ferrous sulfate 324 mg (65 mg 324 mg PO DAILY 01/03/23 01/03/23 History iron) tablet,delayed release magnesium oxide 400 mg (241.3 mg 400 mg PO DAILY 01/03/23 01/03/23 History magnesium) tablet psyllium husk 0.4 gram capsule 0.4 g PO DAILY 01/03/23 01/03/23 History (Metamucil) Allergies Allergy/AdvReac Type Severity Reaction Status Date / Time No Known Allergies Allergy Verified 01/03/23 12:53 Exam Const: General: alert Orientation/consciousness: patient oriented x3 Resp: Auscultation: clear to auscultation bilaterally Cardio: Rhythm: regular rhythm GI: GI Palp: Yes Soft to palpation and No Tenderness to palpation present (GI) Neuro: General: patient oriented x3 Assessment and Plan Assessment and plan (1) Iron deficiency anemia: Code(s): D50.9 - Iron deficiency anemia, unspecified Status: Acute Assessment and Plan: EGD with possible biopsy or dilatation or cautery.Colonoscopy with possible biopsy or polypectomy or cautery or injection of substances.
[2023-01-10 09:12] VITALS: BP 126/71; PULSE 71; RESP 16; TEMP 36.6; O2SAT 100; BMI 36.1
[2023-01-10] MEDS: LACTATED RINGERS 1,000 ML 150 ML IV CONT (09:24)
--- NOTE | 2023-01-10 09:41 | WPDANESEPPF ---
Anes - Initial Pre Proc Eval Procedure: Operation Date: 01/10/23 10:00 Proposed Procedures p Esophagogastroduodenoscopy & Colonoscopy - Teto Ponce MD Date/Time: 01/10/23 09:41 Surgeon: Teto Ponce MD Pre Op Diagnosis: anemia Patient Data Age: 72 Gender: F Height: 1.7 m Weight: 104.7 kg Last Vital Signs Temp 97.8 F 01/10/23 09:12 Pulse 71 01/10/23 09:12 Resp 16 01/10/23 09:12 BP 126/71 01/10/23 09:12 Pulse Ox 100 01/10/23 09:12 O2 Del Method Room Air 01/10/23 09:12 Allergies Allergy/AdvReac Type Severity Reaction Status Date / Time No Known Allergies Allergy Verified 01/03/23 12:53 Home Medications Medication Instructions Recorded Confirmed Type diltiazem HCl 180 mg 180 mg PO DAILY 04/05/21 01/03/23 History capsule,extended release 24 hr exemestane 25 mg tablet (Aromasin) 25 mg PO DAILY 04/05/21 01/03/23 History furosemide 40 mg tablet (Lasix) 40 mg PO DAILY 04/05/21 01/03/23 History lisinopril 20 mg tablet 20 mg PO DAILY 04/05/21 01/03/23 History paroxetine HCl 20 mg tablet 20 mg PO DAILY 04/05/21 01/03/23 History potassium chloride 20 mEq 20 meq PO DAILY 04/05/21 01/03/23 History tablet,extended release(part/cryst) pravastatin 80 mg tablet 80 tablet PO DAILY 01/24/22 01/03/23 History rivaroxaban 15 mg tablet (Xarelto) 15 mg PO DAILY@1700 30 days #30 01/25/22 01/03/23 Rx tabs Stool Softener 1 tab-cap PO HS 01/03/23 01/03/23 History calcium carbonate 600 mg-vitamin 1 tablet PO DAILY 01/03/23 01/03/23 History D3 10 mcg (400 unit) tablet (Calcium 600 + D(3)) ezetimibe 10 mg tablet 10 mg PO DAILY 01/03/23 01/03/23 History ferrous sulfate 324 mg (65 mg 324 mg PO DAILY 01/03/23 01/03/23 History iron) tablet,delayed release magnesium oxide 400 mg (241.3 mg 400 mg PO DAILY 01/03/23 01/03/23 History magnesium) tablet psyllium husk 0.4 gram capsule 0.4 g PO DAILY 01/03/23 01/03/23 History (Metamucil) Patient hx anesthesia problems: none Family hx anesthesia problems: none Results Review: All pre-operative results and documents have been reviewed as part of the pre-operative evaluation. PMFSH Past Medical History Medical History A-fib Breast cancer Depression Hypertension Surgical History Surgical History H/O lumpectomy History of cardiac radiofrequency ablation History of cataract surgery History of cholecystectomy Social History Social History Smoking packs per day: 0.75 Smoking cigarettes per day: 15.0 Years smoked: 45 Smoking pack-years: 33.75 Smoking status: Former smoker Tobacco type: cigarettes Additional smoking assessment comments: used to smoke heavily, quit 10 years ago but still has 1-2 cigarettes/month Alcohol intake: current Substance use: never Substance use type: does not use Living arrangements: with family Spiritual care concerns: No Anes - Eval Final PreProcedure Day of Procedure 01/10/23 09:41 Patient weight: obese Heart: regular rate and rhythm Lungs: clear to auscultation Airway: Mallampati scale class II Neurological: alert and oriented Last oral intake: >/= 8 hours ASA classification: III Emergent: no Anesthetic plan: proceed Anesthesia type and monitoring: general GIVS and standard monitoring Results Review: All pre-operative results and documents have been reviewed as part of the pre-operative evaluation. Informed Consent: The patient's anesthetic plan and its attendant risks and benefits were discussed with the patient/family/POA. Questions were solicited and answers provided to the satisfaction of the patient/family/POA.
[2023-01-10] MEDS: BENZOCAINE (*SP) 60 ML SPRAY CAN (HURRICAINE) 1 SPRAY MUCOUS MEM (10:02)
--- NOTE | 2023-01-10 10:13 | SUR.OPER ---
EGD END 1006 COLONOSCOPY START 1014
[2023-01-10 10:44] VITALS: BP 126/53; PULSE 82; RESP 16; O2SAT 95
[2023-01-10 10:54] VITALS: BP 97/70; PULSE 75; RESP 16; O2SAT 98
[2023-01-10 11:04] VITALS: BP 101/76; PULSE 84; RESP 16; O2SAT 99
== END 2023-01-10 11:30 | disposition home or self-care (01) ==
PROVIDERS: PCP Internal Medicine; Visit Provider Internal Medicine Gastroenterology
PROC: 0DJ08ZZ Inspection of Upper Intestinal Tract, Via Natural or Artificial Opening Endoscopic (ICD-10-PCS; CPT 43235; principal; 2023-01-10 10:00)
DX: D50.9 Iron deficiency anemia, unspecified (principal); D12.2 Benign neoplasm of ascending colon; K57.30 Diverticulosis of large intestine without perforation or abscess without bleeding; D17.5 Benign lipomatous neoplasm of intra-abdominal organs; K64.8 Other hemorrhoids; K21.9 Gastro-esophageal reflux disease without esophagitis; I48.91 Unspecified atrial fibrillation; I10 Essential (primary) hypertension; F32.A Depression, unspecified; Z85.3 Personal history of malignant neoplasm of breast; Z79.01 Long term (current) use of anticoagulants; Z72.0 Tobacco use; E66.9 Obesity, unspecified; Z68.36 Body mass index [BMI] 36.0-36.9, adult
CPT/HCPCS: 45385; 43235; 88305; J2704; J7120

== ENCOUNTER → 2023-05-27 11:22 | Outpatient (CLI) | payer MEDICARE, SELFPAY ==
--- NOTE | ~2023-05-27 | MR_ITS ---
EXAMINATION: MR hand RT wo con DATE: 05/27/2023 12:43 INDICATION: Osteomyelitis with 2 weeks of erythema and swelling at the right second digit TECHNIQUE: Magnetic resonance imaging (MRI) of the right hand was performed without intravenous contr ast to include the metacarpals and digits but excluding the carpus. Sequences included sagittal, sayda nal, and axial T1-weighted FSE and T2-weighted FS FSE. COMPARISON: None FINDINGS: Bone alignment is normal. No fractures. Geographic increased T2 signal and loss of T1 hyperintense ma rrow fat signal at the distal left second middle phalanx with suggestion of some osteolysis at the ul wolfgang side of the head of the middle phalanx which is consistent with provided history of osteomyelitis . Prominent synovitis versus complex effusion at the distal interphalangeal joint which bulges the do rsal capsule of the joint. There is additional increased T2 signal at the distal phalanx with mildly decreased but still present T1 marrow fat signal which could represent either reactive edema or early osteomyelitis. Bone marrow signal is otherwise normal throughout the remainder of the visualized rig ht hand. There is polyarticular osteoarthritis, moderate severity at the fourth and fifth distal inte rphalangeal joints and mild at many of the remaining metacarpophalangeal and interphalangeal joints. The distal extensor tendons of the second digit along are indistinct at the level of the distal inter phalangeal joint along with the collateral ligaments at this joint resulting from the prominent infla mmatory changes with increased T2 and decreased T1 signal of the surrounding soft tissues and subcuta neous fat. Remainder of the visualized flexor and extensor tendons and collateral ligament complexes appear normal. Aside from at the second distal interphalangeal joint there is noted joint effusion or abscess. IMPRESSION: 1. Constellation of findings consistent with septic arthritis at the second distal interphalangeal sridevi int with osteomyelitis at the distal aspect of the middle phalanx and reactive edema versus additiona l early osteomyelitis at the base of the distal phalanx. Reviewed, dictated and finalized at location A. IMPRESSION: 1. Constellation of findings consistent with septic arthritis at the second dis dex interphalangeal joint with osteomyelitis at the distal aspect of the middle phalanx and reactive edema versus additional early osteomyelitis at the base o f the distal phalanx.
== END ==
PROVIDERS: PCP Internal Medicine; Visit Provider Internal Medicine
DX: M86.9 Osteomyelitis, unspecified (principal)
CPT/HCPCS: 73218

== ENCOUNTER 2023-06-04 14:51 | Outpatient (CLI) | payer MEDICARE, SELFPAY ==
--- NOTE | ~2023-06-04 | XR_ITS ---
EXAM: XR finger 2nd RT min 2V, XR hand RT min 3V DATE: 06/04/2023 15:16 HISTORY: right index DIP joint, pain swelling . COMPARISON: None available. FINDINGS: Decreased mineralization. No fracture or dislocation. No lytic or blastic lesion. Arthriti c changes typical of osteoarthritis present in the hand and wrist, most pronounced in the DIP joints of the fingers, with severe erosive changes in the second DIP joint. No erosion or periosteal change. Soft tissue swelling over the second digit. 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 Infection is not excluded. Reviewed, dictated and finalized at location K. IMPRESSION: Severe erosive change in the right DIP joint, likely representing s evere erosive osteoarthritis. Infection is not excluded.
== END 2023-06-04 14:52 | disposition home or self-care (01) ==
PROVIDERS: PCP Internal Medicine; Visit Provider Plastic Surgery
DX: M19.041 Primary osteoarthritis, right hand (principal)
CPT/HCPCS: 73130; 73140

== ENCOUNTER → 2023-07-31 13:19 | Outpatient (CLI) | payer MEDICARE, SELFPAY ==
--- NOTE | ~2023-07-31 | XR_ITS ---
EXAM: XR finger 2nd RT min 2V DATE: 07/31/2023 14:15 HISTORY: Other acute osteomyelitis, right hand . COMPARISON: None available. FINDINGS: Decreased mineralization. No fracture or dislocation. Redemonstration of the severe erosiv e change in the right second DIP joint. Mild scattered degenerative changes in other visualized joint s. No new erosion or periosteal change. IMPRESSION: Stable severe erosive change in the right second DIP joint. Reviewed, dictated and finalized at location K. [employer]
== END ==
PROVIDERS: PCP Plastic Surgery; Visit Provider Plastic Surgery
DX: M86.141 Other acute osteomyelitis, right hand (principal)
CPT/HCPCS: 73140

== ENCOUNTER 2024-06-05 15:31 | Emergency (ER) | payer MEDICARE, SELFPAY ==
--- NOTE | ~2024-06-05 | CT_ITS ---
EXAMINATION: CT diagnostic chest w con DATE: 06/05/2024 17:07 INDICATION: Left breast infection TECHNIQUE: Computed tomography (CT) of the chest was performed with 100 CC Omnipaque 350 intravenous contrast. Automated exposure control and iterative reconstruction technique were employed. Exam dose: 542.23 mGy-cm total exam DLP. COMPARISON: None FINDINGS: 2 5.1 cm vertical, 5.4 cm transverse 2.9 cm deep air-containing cavity of the central mid a nd lower left breast, extending into the skin surface, abutting the pectoralis major muscle posterior ly. There is generalized increased density of the left breast parenchyma and skin thickening of the l eft breast. Normal heart size. Coronary artery calcifications. Thoracic aortic calcification, great vessel calcifications. No thoracic aortic aneurysm or dissection . No pericardial or pleural effusion. Calcified right hilar and subcarinal nodes consistent with old granulomatous disease. No hilar or mediastinal mass lesion or lymphadenopathy. The lungs are clear of infiltrate or consolidation. Normal morphology of the adrenal glands. Status post cholecystectomy. Hepatic and splenic calcified granulomas consistent with old granulomatous disease. Degenerative disc disease of the lower cervical spine. Degenerative spurring of the thoracic spine No suspicious osteolytic or osteoblastic lesions are noted. IMPRESSION: Left breast abscess cavity, surrounding increased density of the left breast and left br east skin thickening The lungs are clear Old granulomatous disease Status post cholecystectomy Reviewed, dictated and finalized at [facility] Reviewed, dictated and finalized at [facility] IMPRESSION: Left breast abscess cavity, surrounding increased density of the l eft breast and left breast skin thickening The lungs are clear Old granulomatous disease Status post cholecystectomy
[2024-06-05 15:34] VITALS: BP 164/67; PULSE 87; RESP 18; TEMP 36.6; O2SAT 98
--- NOTE | 2024-06-05 15:48 | ED_ITS ---
HPI - Wound/Laceration General Chief Complaint: Wound/Laceration Stated Complaint: wound Time Seen by Provider: 06/05/24 15:34 Source: patient Mode of arrival: ambulatory Limitations: no limitations History of Present Illness HPI narrative: This is a 73-year-old female with PMH of breast cancer, CVA, AFib, HTN who presents to the ED for chief complaint of painful wound to the left breast. Reports that she had an incision and drainage done in the OR at [facility] [address] Martins. they have been tending to the wound at home this week and changing gauze/packing. They report the packing is very deep and extensive. It has been draining yellow fluid that appears to be infected. She is here today because the wound is more painful and she is feeling generally unwell. Patient and saw some discharge and were unsure of the nature of this discharge which is why they are here as well. endorses nausea but no vomiting. denies fevers, chills, Diarrhea, LOC, spreading redness throughout the chest, back pain, abdominal pain reports surgical history of 2 lumpectomies to the left breast for breast cancer several years ago. Related Data Home Medications Medication Instructions Recorded Confirmed diltiazem HCl 180 mg 180 mg PO DAILY 04/05/21 01/03/23 capsule,extended release 24 hr exemestane 25 mg tablet (Aromasin) 25 mg PO DAILY 04/05/21 01/03/23 furosemide 40 mg tablet (Lasix) 40 mg PO DAILY 04/05/21 01/03/23 lisinopril 20 mg tablet 20 mg PO DAILY 04/05/21 01/03/23 paroxetine HCl 20 mg tablet 20 mg PO DAILY 04/05/21 01/03/23 potassium chloride 20 mEq 20 meq PO DAILY 04/05/21 01/03/23 tablet,extended release(part/cryst) pravastatin 80 mg tablet 80 tablet PO DAILY 01/24/22 01/03/23 calcium 600 mg (as 1 tablet PO DAILY 01/03/23 01/03/23 carbonate)-vitamin D3 10 mcg (400 unit) tablet (Calcium 600 + D(3)) magnesium oxide 400 mg (241.3 mg 400 mg PO DAILY 01/03/23 01/03/23 magnesium) tablet psyllium husk 0.4 gram capsule 0.4 g PO DAILY 01/03/23 01/03/23 (Metamucil) ezetimibe 10 mg tablet 10 mg PO DAILY 06/04/23 Allergies Allergy/AdvReac Type Severity Reaction Status Date / Time No Known Allergies Allergy Verified 06/05/24 15:47 Review of Systems Review of Systems: All systems as dictated in [facility] Past Medical History Medical History A-fib Breast cancer Depression Hypertension Surgical History Surgical History H/O lumpectomy History of cardiac radiofrequency ablation History of cataract surgery History of cholecystectomy Social History Social History (Updated 06/04/23 @ 15:41 by Kayy Nolan CMA) Smoking packs per day: 0.75 Smoking cigarettes per day: 15.0 Years smoked: 45 Smoking pack-years: 33.75 Smoking status: Former smoker Tobacco type: cigarettes Additional smoking assessment comments: used to smoke heavily, quit 10 years ago but still has 1-2 cigarettes/month Alcohol intake: current Substance use: never Substance use type: does not use Lack of Transportation: No Lack of Food: Never True Current Housing: I Have Housing Concerned About Future Housing: No Difficulty Paying Gas/Electric Bills: No Difficulty Paying for Meds: No Currently Unemployed: No Education: Associate Degree Difficulty w/ Childcare or Family Care: No Living arrangements: with family Spiritual care concerns: No Exam Narrative: GENERAL: Well-appearing, well-nourished, and in no acute distress. HEAD: Normocephalic, atraumatic. EYES: PERRLA and EOMI. ENT: Nares clear, no rhinorrhea or epistaxis. Mucous membranes moist. Oropharynx without tonsillar hypertrophy exudate or other lesions. NECK: Supple. No adenopathy or masses. CHEST: No respiratory distress. Clear to auscultation. No wheezes rales or rhonchi. left breast: there is a open 3.5 cm wound to the inferior left breast. Mild surrounding erythema and induration. tenderness to the area. Minimal purulent drainage noted although there appears to be some purulence/fatty tissue in the wound bed which is well over 5 cm deep. Right breast: Benign HEART: Regular rate and rhythm. No murmur heard. Normal peripheral pulses. ABDOMEN: Soft, nontender, nondistended, normal active bowel sounds. MSK: Normal range of motion. No edema. SKIN: Warm, dry, no rash. NEURO: Alert and oriented x4. No focal deficits. PSYCH: Normal mood and affect. Course Vital Signs Vital signs: Vital Signs Temperature 97.8 F 06/05/24 15:34 Pulse Rate 87 06/05/24 15:34 Respiratory Rate 18 06/05/24 15:34 Blood Pressure 164/67 H 06/05/24 15:34 Pulse Oximetry 98 06/05/24 15:34 Oxygen Delivery Room Air 06/05/24 15:34 Temperature 97.8 F 06/05/24 15:34 Pulse Rate 67 06/05/24 19:27 Respiratory Rate 17 06/05/24 19:27 Blood Pressure 134/60 06/05/24 19:27 Pulse Oximetry 97 06/05/24 19:27 Oxygen Delivery Room Air 06/05/24 15:34 MDM - Wound/Laceration MDM Narrative Medical decision making narrative: This is a 73 yo female who presents to the ED for chief complaint of open left breast wound and feeling unwell. Recent incision and drainage done in the OR at another facility for breast abscess. Vitals are normal. Exam is remarkable for the above. There is a deep wound bed to the inferior left breast that has been previously surgically addressed for breast cancer with multiple lumpectomies. There is some surrounding erythema and induration to the open surgical wound. Lab work shows mildly elevated white count of 13.5. CRP is elevated at 13 3. BUN and creatinine are slightly up, patient does appear to be dehydrated. Urinalysis unremarkable. Chest CT: IMPRESSION: Left breast abscess cavity, surrounding increased density of the left breast and left breast skin thickening The lungs are clear Old granulomatous disease Status post cholecystectomy. Presentation consistent with a cellulitis. No evidence of deep space infection. No sepsis. Patient was given fluids, pain meds and antiemetics with good relief. She was started on Ancef here and will be given prescription for cephalexin. Encouraged to follow up with surgeon on this issue. Patient will be discharged in stable condition. Supportive measures discussed and return precautions given. Patient is understanding and agreeable with plan for discharge with PCP/surgery follow-up. Lab Data 06/05/24 16:17 06/05/24 16:17 Labs: Lab Results 06/05/24 06/05/24 Range/Units 16:17 16:50 WBC 13.5 H (4.5-10.0) K/mm3 RBC 4.22 (4.2-5.4) M/mm3 Hgb 12.1 (12.0-15.0) g/dL Hct 37.0 (37.0-47.0) % MCV 87.7 (80-100) fl MCH 28.7 (26-34) pg MCHC 32.7 (32-36) g/dl RDW 15.6 H (11.5-14.5) % Plt Count 311 D (150-375) k/mm3 MPV 10.3 (7.4-10.4) fl Immature Gran % (Auto) 0.3 (0-0.5) % Neut % (Auto) 79.5 H (45.5-73.1) % Lymph % (Auto) 13.6 L (18.3-44.2) % Hinds % (Auto) 5.6 (2.6-8.5) % Eos % (Auto) 0.8 (0-4.4) % Baso % (Auto) 0.2 (0.2-1.2) % Lymph # (Auto) 1.84 (0.9-3.2) K/mm3 Hinds # (Auto) 0.8 H (0.1-0.6) K/mm3 Eos # (Auto) 0.1 (0-0.3) K/mm3 Baso # (Auto) 0.0 (0.0-0.1) K/mm3 Abs Immat Gran (auto) 0.04 H (0.00-0.031) K/mm3 Absolute Neuts (auto) 10.7 H (1.3-6.7) K/mm3 Absolute Nucleated RBC 0.000 (0.0-0.012) K/mm3 Nucleated RBC % 0.0 (0.0-0.2) % Sodium 138 (137-145) mmol/L Potassium 4.4 (3.4-5.0) mmol/L Chloride 98 (98-107) mmol/L Carbon Dioxide 29 (22-30) mmol/L Anion Gap 11 (4-12) mmol/L BUN 29 H D (7-17) mg/dL Creatinine 1.20 H (0.7-1.0) mg/dL Estim Creat Clear Calc 47 ml/min Estimated GFR 44 L (59 - ) Glucose 152 H (65-110) mg/dL Lactic Acid 1.2 (0.7-2.0) mmol/L Calcium 9.5 (8.4-10.2) mg/dL Total Bilirubin 0.6 (0.2-1.3) mg/dL AST 30 (14-36) U/L ALT 26 (6-35) U/L Alkaline Phosphatase 94 (38-126) U/L C-Reactive Protein 13.3 H (<1.0) mg/dL Total Protein 8.0 (6.3-8.2) g/dL Albumin 4.2 (3.5-5.1) g/dL Urine Color Dark yellow (Yellow) Urine Appearance Cloudy H (Clear) Urine pH 6.5 (5.0-9.0) Ur Specific Neely 1.023 (1.001-1.035) Urine Protein 1+ H (Negative) mg/dL Urine Glucose (UA) Negative (Negative) mg/dL Urine Ketones Trace H (Negative) mg/dL Ur Blood (Man) Negative (Negative) Urine Nitrate Negative (Negative) Urine Bilirubin Negative (Negative) Urine Urobilinogen 1.0 (<2.0) mg/dL Add Ur Microanalysis Reviewed Leukocyte Esterase Rfl 1+ H (Negative) COMPA/UL Urine RBC 0-2 (0-2) /hpf Urine WBC 0-5 (0-3) /hpf Ur Squamous Epith Cells Few (Few) /hpf Urine Bacteria None seen /hpf Urine Casts 0-2 Discharge Plan Discharge Clinical Impression: Cellulitis Patient Disposition: Home, Self-Care Condition: Stable Instructions: Antibiotic Form Additional Instructions: your exam and imaging today are reassuring. There is likely a skin infection present. please take antibiotics as prescribed and follow-up closely with your surgeon on this issue. Continue to pack the wound daily and take Zofran as needed for nausea. Rotate between Tylenol and ibuprofen for pain or fevers. If you have any new or worsening symptoms please return to the ER for further evaluation. Prescriptions: New cephalexin 500 mg capsule 500 mg PO Q8H 7 Days Qty: 21 0RF ondansetron 4 mg tablet,disintegrating 4 mg PO Q8H PRN (Reason: nausea and vomiting) Qty: 10 0RF No Action furosemide [Lasix] 40 mg tablet 40 mg PO DAILY diltiazem HCl 180 mg capsule,extended release 24hr 180 mg PO DAILY lisinopril 20 mg tablet 20 mg PO DAILY potassium chloride 20 mEq tablet,ER particles/crystals 20 meq PO DAILY exemestane [Aromasin] 25 mg tablet 25 mg PO DAILY Hold Instructions: HOLD - Please discuss with your doctor before resuming paroxetine HCl 20 mg tablet 20 mg PO DAILY magnesium oxide 400 mg (241.3 mg magnesium) tablet 400 mg PO DAILY calcium carbonate-vitamin D3 [Calcium 600 + D(3)] 600 mg-10 mcg (400 unit) Tablet 1 tablet PO DAILY psyllium husk [Metamucil] 0.4 gram Capsule 0.4 g PO DAILY ezetimibe 10 mg tablet 10 mg PO DAILY pravastatin 80 mg tablet 80 tablet PO DAILY Xarelto 15 mg Tablet 15 mg PO DAILY@1700 30 Days Qty: 30 3RF Follow-up/Referrals: Katie,Otoniel Taveras MD [Primary Care Provider] - Time of Disposition: 19:25
[2024-06-05] MEDS: SODIUM CHLORIDE 0.9% IV 1,000 ML 999 ML IV CONT (16:19)
[2024-06-05] MEDS: MORPHINE SULFATE (*CRX) 4 MG/ML INJ IV PUSH (16:20)
[2024-06-05] MEDS: ONDANSETRON INJ 4 MG/2 ML VIAL IV PUSH (16:20)
[2024-06-05 16:23] LABS: Basophils Percent Auto 0.2 % (0.2-1.2); Eosinophils Absolute Auto 0.1 K/mm3 (0-0.3); Eosinophils Percent Auto 0.8 % (0-4.4); Hemoglobin 12.1 g/dL (12.0-15.0); Immature Granulocyte Absolute 0.04 K/mm3 (0.00-0.031); Immature Granulocyte Percent A 0.3 % (0-0.5); Lymphocytes Absolute Auto 1.84 K/mm3 (0.9-3.2); Lymphocytes Percent Auto 13.6 % (18.3-44.2); Mean Corpuscular HGB Conc 32.7 g/dl (32-36); Mean Corpuscular Hemoglobin 28.7 pg (26-34); Mean Corpuscular Volume 87.7 fl (80-100); Mean Platelet Volume 10.3 fl (7.4-10.4); Monocytes Absolute Auto 0.8 K/mm3 (0.1-0.6); Monocytes Percent Auto 5.6 % (2.6-8.5); Neutrophils Absolute Auto 10.7 K/mm3 (1.3-6.7); Neutrophils Percent Auto 79.5 % (45.5-73.1); Platelet Count Result 311 k/mm3 (150-375); Red Blood Count 4.22 M/mm3 (4.2-5.4); Red Cell Distribution Width 15.6 % (11.5-14.5); White Blood Count 13.5 K/mm3 (4.5-10.0)
[2024-06-05 16:36] LABS: Lactic Acid Reflex 1.2 mmol/L (0.7-2.0)
[2024-06-05 16:40] LABS: Alanine Aminotransferase 26 U/L (6-35); Albumin Level 4.2 g/dL (3.5-5.1); Alkaline Phosphatase 94 U/L (38-126); Anion Gap 11 mmol/L (4-12); Aspartate Amino Transferase 30 U/L (14-36); Bilirubin,Total 0.6 mg/dL (0.2-1.3); Blood Urea Nitrogen 29 mg/dL (7-17); Calcium 9.5 mg/dL (8.4-10.2); Carbon Dioxide 29 mmol/L (22-30); Chloride 98 mmol/L (98-107); Estimated CRCL calculation 47 ml/min; Estimated Glomerular Filt Rate 44; Glucose 152 mg/dL (65-110); Potassium 4.4 mmol/L (3.4-5.0); Sodium 138 mmol/L (137-145)
[2024-06-05 16:51] LABS: CRP 13.3 mg/dL (<1.0)
[2024-06-05 17:32] LABS: Add Urine Microscopic? YES; Appearance Urine Cloudy (Clear); Bacteria Urine None Seen /hpf; Bilirubin Urine Negative (Negative); Blood Urine Negative (Negative); Color Urine Dark Yellow (Yellow); Glucose Urine UA Negative (Negative); Ketones Urine Trace mg/dL (Negative); Leukocyte Esterase Ur 1+ LEU/UL (Negative); Need Manual Microscopic Reviewed; Nitrate Urine Negative (Negative); Non Pathogenic Casts 0-2; Protein Urine 1+ mg/dL (Negative); RBC Urine 0-2 /hpf (0-2); Specific Grav Ur 1.023 (1.001-1.035); Squamous Epithelial Cell Urine Few /hpf (Few); WBC Urine 0-5 /hpf (0-3); pH Urine 6.5 (5.0-9.0)
[2024-06-05 18:44] VITALS: BP 134/61; PULSE 67; RESP 18; O2SAT 100
[2024-06-05] MEDS: ceFAZolin 1 GM/NS 50 ML 1 GM/50 ML BAG IVPB (19:09)
--- NOTE | 2024-06-05 19:15 | PC.NURSE ---
Report received from HARESH Rodrigez. Assumed care of patient at this time.
[2024-06-05 19:27] VITALS: BP 134/60; PULSE 67; RESP 17; O2SAT 97
== END 2024-06-05 19:49 | disposition home or self-care (01) ==
PROVIDERS: Emergency Provider Physician Assistant; PCP Plastic Surgery
DX: N61.0 Mastitis without abscess (principal); T81.49XA Infection following a procedure, other surgical site, initial encounter; I48.91 Unspecified atrial fibrillation; I10 Essential (primary) hypertension; Z85.3 Personal history of malignant neoplasm of breast; Z86.73 Personal history of transient ischemic attack (TIA), and cerebral infarction without residual deficits; F32.A Depression, unspecified; Z87.891 Personal history of nicotine dependence
CPT/HCPCS: 36415; 71260; 80053; 81001; 83605; 85025; 86140; 87040; 87086; 96361; 96365; 96375; 99284; J0690; J2270; J2405; J7030; Q9967